=== PATIENT | male | born 1955 | race Caucasian/White ===

== ENCOUNTER 2018-08-07 00:21 | Emergency (ER) | payer BC, OTHER ==
[~2018-08-07] VITALS: Ht 175.3 cm; Wt 98.4 kg
--- OUTSIDE RECORDS SUMMARY | 2018-08-07 00:27 | XMS REPORT ---
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 Active 413268326 Problem Obstructive sleep apnea G47.33 Active 19057640 Problem Type 2 diabetes mellitus without complication, without long-term current use of insulin E11.9 Active 961375938 Problem Dyslipidemia E78.5 Active 727256416 ALLERGIES No Known Allergies ENCOUNTERS Encounter Location Date Diagnosis [facility] [id number] [place] [phone] Sep, Acute non-recurrent maxillary sinusitis J01.[address] [place] [address] [address] Aug, Dyslipidemia E78.5 and Type 2 diabetes mellitus without complication, without long-term current use of insulin E11.9 [place] [id number] [place] [phone] Aug, Type 2 diabetes mellitus without complication, without long- term current use of insulin E11.9 ; Seasonal allergic rhinitis, unspecified trigger J30.2 and Screening for prostate cancer Z12.5 IMMUNIZATIONS No Known Immunizations SOCIAL HISTORY Never Assessed REASON FOR VISIT Sinus infection -Deedee BOWDEN PLAN OF CARE Activity Details Follow Up routine appt Reason: VITAL SIGNS Height 70.2 in 2017-09-30 Weight 234.6 lbs 2017-09-30 Temperature 97.8 degrees Fahrenheit 2017-09-30 Heart Rate 76 bpm 2017-09-30 Respiratory Rate 18 2017-09-30 BMI 33.47 kg/m2 2017-09-30 Blood pressure systolic 128 mmHg 2017-09-30 Blood pressure diastolic 78 mmHg 2017-09-30 MEDICATIONS Medication Instructions Dosage Frequency Start Date End Date Duration Status SudoGest 60 mg Orally every 6 hrs 1 tablet as needed 6h Sep, 05 days Active Atorvastatin Calcium 40 mg Orally Once a day 1 tablet 24h Aug, 30 day(s) Active Allopurinol 300 MG Orally Once a day 1 tablet 24h 30 Active Augmentin 875-125 MG Orally every 12 hrs 1 tablet 12h Sep,Sep 10 day(s) Active Janumet 50-500 MG Orally Twice a day 1 tablet with meals 12h Sep, 30 day(s) Active Augmentin 875-125 MG Orally every 12 hrs 1 tablet 12h Sep,Sep Active Fluticasone Propionate 50 MCG/ACT Nasally Once a day 2spray in each nostril 24h Aug, 30 day(s) Not-Taking Farxiga 10 MG Orally Once a day 1 tablet 24h 30 Active RESULTS No Results PROCEDURES No Known procedures INSTRUCTIONS MEDICATIONS ADMINISTERED No Known Medications MEDICAL (GENERAL) HISTORY Type Description Date Medical 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
--- OUTSIDE RECORDS SUMMARY | 2018-08-07 00:27 | XMS REPORT ---
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 Active 614686763 Problem Obstructive sleep apnea G47.33 Active 77401059 Problem Type 2 diabetes mellitus without complication, without long-term current use of insulin E11.9 Active 593041685 Problem Dyslipidemia E78.5 Active [id number] ALLERGIES No Information ENCOUNTERS Encounter Location Date Diagnosis [facility] [id number] [place] [phone] Sep, Acute non-recurrent maxillary sinusitis J01.00 [facility] [id number] [place] [address] Aug, Dyslipidemia E78.5 and Type 2 diabetes mellitus without complication, without long-term current use of insulin E11.9 [place] [id number] [place] [address] Aug, Type 2 diabetes mellitus without complication, without long- term current use of insulin E11.9 ; Seasonal allergic rhinitis, unspecified trigger J30.2 and Screening for prostate cancer Z12.5 IMMUNIZATIONS No Known Immunizations SOCIAL HISTORY Never Assessed REASON FOR VISIT lab defer/med update PLAN OF CARE VITAL SIGNS MEDICATIONS Medication Instructions Dosage Frequency Start Date End Date Duration Status Janumet 50-500 MG Orally Twice a day 1 tablet with meals 12h Sep, 30 day(s) Active Atorvastatin Calcium 40 mg Orally Once a day 1 tablet 24h Aug, 30 day(s) Active RESULTS No Results PROCEDURES No Known [...]
--- OUTSIDE RECORDS SUMMARY | 2018-08-07 00:27 | XMS REPORT | Referral Summary ---
Author Organization Unknown Address Unknown Phone Unavailable Care Team Providers Care Camp Head Counselor Name Role Phone Jaun Vo PCP Encounter VC Date(s): 07/20/14 - 07/20/14 Via JUAN CARLOS Dennis, Bill, [address] [place] [address] Discharge Diagnosis: Bipolar disorder Discharge Diagnosis: Degeneration of cervical intervertebral disc Discharge Diagnosis: Kidney stone Discharge Diagnosis: Diabetes type 2, controlled Discharge Disposition: Home or Self Care Attending Physician: Jaun Vo MD Admitting Physician: Jaun Vo MD Vital Signs Most recent to 1 oldest [Reference Range]: Temperature Tympanic 35.9 degC [36.6-38.1 degC] *LOW* (07/20/14 8:27 AM) Peripheral Pulse 76 bpm Rate [60-100 bpm] (07/20/14 8:27 AM) Blood Pressure 132/82 mmHg [90-140/60-90 mmHg] (07/20/14 8:27 AM) Problem List Condition Effective Dates Status Health Status Informant Acute Active bronchitis(Confirmed ) Acute maxillary Active sinusitis(Confirmed) Bipolar disorder Active (disorder)(Confirmed ) Bladder outlet Active obstruction(Confirme d) Bronchitis, not Active specified as acute or chronic(Confirmed) Carpal tunnel Active syndrome(Confirmed) Cervical spondylosis Active without myelopathy(Confirmed ) Other chronic Active sinusitis(Confirmed) Degeneration Active cervical disc(Confirmed) Depressive disorder, Active not elsewhere classified(Confirmed ) Displacement cerv Active disc w/o myelop(Confirmed) Hearing Active loss(Confirmed) Hypertension(Confirm Active ed) Insomnia with sleep Active apnea, unspecified(Confirme d) Meningitis(Confirmed Active ) Obesity(Confirmed) Active patient Spinal stenosis in Active cervical region (disorder)(Confirmed ) Tension Active headache(Confirmed) Diabetes type 2, Active controlled(Confirmed ) Allergies, Adverse Reactions, Alerts No Known Medication Allergies Medications allopurinol 300 mg oral tablet See Instructions, TAKE ONE TABLET BY MOUTH ONCE A DAY, # 90 tabs, 1 Refill(s), eRx: [facility] #[id number], TAKE ONE TABLET BY MOUTH ONCE A DAY Special Instructions: TAKE ONE TABLET BY MOUTH ONCE A DAY Start Date: 06/21/14 Status: Ordered GlipiZIDE XL 5 mg oral tablet, extended release See Instructions, TAKE ONE TABLET BY MOUTH TWICE A DAY, # 180 unknown unit, 1 Refill(s), eRx: [facility] #[id number], TAKE ONE TABLET BY MOUTH TWICE A DAY Special Instructions: TAKE ONE TABLET BY MOUTH TWICE A DAY Start Date: 06/21/14 Status: Ordered Glucometer strips (DME) DME Item test once daily dx 250.000 contour test strips prn refills, See Instructions, # 100 Each, 0 Refill(s), Pharmacy: [facility] #[id number], test once daily dx 250.000; contour test strips; prn refills, Supply Special Instructions: test once daily dx 250.000 contour test strips prn refills Start Date: 11/17/13 Status: Ordered hydrochlorothiazide 50 mg oral tablet See Instructions, TAKE ONE TABLET BY MOUTH DAILY, # 90 tabs, 1 Refill(s), eRx: [facility] #[id number], TAKE ONE TABLET BY MOUTH DAILY Special Instructions: TAKE ONE TABLET BY MOUTH DAILY Start Date: 06/21/14 Status: Ordered Janumet 50 mg-500 mg oral tablet See Instructions, TAKE ONE TABLET BY MOUTH TWICE A DAY, # 180 tabs, 1 Refill(s) , eRx: [facility] #[id number], TAKE ONE TABLET BY MOUTH TWICE A DAY Special Instructions: TAKE ONE TABLET BY MOUTH TWICE A DAY Start Date: 06/21/14 Status: Ordered SEROquel 200 mg oral tablet 2 tabs, Oral, Daily, # 180 tabs, 0 Refill(s) Start Date: 09/13/13 Status: Ordered Wellbutrin XL 300 mg/24 hours oral tablet, extended release 1 tabs, Oral, Daily, # 90 tabs, 0 Refill(s), other reason (Rx) Start Date: 09/13/13 Status: Ordered Results No data available for this section Immunizations Vaccine Date Refusal Reason tetanus/diphth/pertuss (Tdap) adult/adol 05/18/14 influenza virus vaccine, live 02/08/13 Procedures Procedure Date Related Diagnosis Body Site Diabetic foot examination 05/18/14 Rt C4-5 /C5-6 Transforaminal 07/29/11 Colonoscopies1 10/02/09 Diabetic eye exam 09/27/08 Decompression of median nerve, Rt 06/16/08 Left Carpal tunnel release 04/15/08 Repair of hammer toe 08/21/05 Acoustic neuroma excised Rt 2004 Adenoidectomy Arthroscopy of Rt knee x2 meniscus Circumcision Lithotripsy Tonsillectomy Vasectomy 1Preoperative dx: colorectoal cancer surveilance. postoperative dx: same, normal colonoscopy - see Conversion Document Social History Social History Type Response Smoking Status Never smoker Assessment and Plan Extracted from: Title: Ambulatory Patient Education Author: Jaun Vo MD Date: Physical Medicine and Rehabilitation Diabetes and Exercise Diabetes mellitus is a common, chronic disease, in which the pancreas is unable to adequately control blood glucose (sugar ) levels. There are 2 types of diabetes. Type 1 diabetes patients are unable to produce insulin, a hormone that causes sugar in the blood to be stored in the body. People with type 1 diabetes may compensate by giving themselves injections of insulin. Type 2 diabetes involves not producing adequate amounts of insulin to control blood glucose levels. People with type 2 diabetes control their blood glucose by monitoring their food intake or by taking medicine. Exercise is an important part of diabetes treatment. During exercise, the muscles use a greater amount of glucose from the blood for energy. This lowers your blood glucose, which is the same effect you would get from taking insulin. It has been shown that endurance athletes are more sensitive to insulin than inactive people. SYMPTOMS Many people with a mild case of diabetes have no symptoms. However, if left uncontrolled, diabetes can lead to several complications that could be prevented with treatment of the disease. General symptoms of diabetes include: Frequent urination (polyuria ). Frequent thirst and drinking (polydipsia ). Increased food consumption (polyphagia ). Fatigue. Poor exercise performance. Blurred vision. Inflammation of the vagina (vaginitis ) caused by fungal infections. Skin infections (uncommon). Numbness in the feet,caused by nerve injury. Kidney disease. CAUSES The cause of most cases of diabetes is unknown. In children, diabetes is often due to an autoimmune response to the cells in the pancreas that make insulin. It is also linked with other diseases, such as cystic fibrosis. Diabetes may have a genetic link. PREVENTION Athletes should strive to begin exercise with blood glucose in a well- controlled state. Feet should always be kept clean and dry. Activities in which low blood sugar levels cannot be treated easily (scuba diving, rock climbing, swimming) should be avoided. Anticipate alterations in diet or training to avoid low blood sugar ( hypoglycemia ) and high blood sugar (hyperglycemia ). Athletes should try to increase sugar consumption after strenuous exercise to avoid hypoglycemia. Short-acting insulin should not be injected into an actively exercising muscle. The athlete should rest the injection site for about 1 hour after exercise. Patients with diabetes should get routine checkups of the feet to prevent complications. PROGNOSIS Exercise provides many benefits to the person with diabetes: Reduced body fat. Lower blood pressure. Often, reduced need for medicines. Improved exercise tolerance. Lower insulin levels. Weight loss. Improved lipid profile (decreased cholesterol and low-density lipoproteins ) . RELATED COMPLICATIONS If performed incorrectly, exercise can result in complications of diabetes: Poor control of blood sugar, when exercise is performed at the wrong time. Increase in renal disease, from loss of body fluids (dehydration ). Increased risk of nerve injury (neuropathy ) when performing exercises that increase foot injury. Increased risk of eye problems when performingactivities that involve breath holding or lowering or jarring the head. Increased risk of sudden from exercise in patients with heart disease. Worsening of hypertension with heavy lifting (more than 10 lb/4.5 kg). Altered blood glucose and insulin dose as a result of mild illness that produces loss of appetite. Altered uptake of insulin after injection when insulin injection site is changed. NOTE: Exercise can lower blood glucose effectively, but the effects are short- lasting (no more than a couple of days). Exercise has been shown to improve your sensitivity to insulin. This may alter how your body responds to a given dose of injected insulin. It is important for every patient with diabetes to know how his or her body may react to exercise, and to adjust insulin dosages accordingly. TREATMENT Eat about 1 to 3 hours before exercise. Check blood glucose immediately before and after exercise. Stop exercise if blood glucose is more than 250 mg/dL. Stop exercise if blood glucose is less than 100 mg/dL. Do not exercise within 1 hour of an insulin injection. Be prepared to treat low blood glucose while exercising. Keep some sugar product with you, such as a candy bar. For prolonged exercise, use a sports drink to maintain your glucose level. Replace used up glucose in the body after exercise. Consume fluids during and after exercise to avoid dehydration. SEEK MEDICAL CARE IF: You have vision changes after a run. You notice a loss of sensation in your feet after exercise. You have increased numbness, tingling, or pins and needles sensations after exercise. You have chest pain during or after exercise. You have a fast, irregular heartbeat (palpitations ) during or after exercise. Your exercise tolerance gets worse. You have fainting or dizzy spells for brief periods during or after exercise. Document Released: 03/10/2006 Document Revised: 06/01/2012 Document Reviewed: [employer] Patient Information 2014 [employer]. No follow up information was provided. Extracted from: Title: Office Visit Note Author: Jaun Vo MD Date: 07/20/14 Assessment/Plan Bipolar disorder Overall stable no change in current treatment. Ordered: Office Visit Level 4 Est 62772 Degeneration of cervical intervertebral disc His pain has been well controlled no change in current treatment. Ordered: Office Visit Level 4 Est 97860 Diabetes type 2, controlled I gave him some information on the savings plan with Januvia area he'll look into that and if that works for his will continue if not we'll discontinue the Januvia and see how he does just on metformin and glipizide together. He'll keep me posted on brace at with that. Ordered: Office Visit Level 4 Est 26193 Kidney stone We'll decrease his dose of hydrochlorothiazide 25 mg a day and see how he does. Probably that'll help with the side effects of dry mouth but still give him some protection from his stones. Ordered: Office Visit Level 4 Est 39490
--- OUTSIDE RECORDS SUMMARY | 2018-08-07 00:28 | XMS REPORT | Clinical Summary ---
Author Author Admin, IGNACIO Organization [facility] Address Unknown Phone Unavailable Allergies, Adverse Reactions, Alerts Allergy Name Reaction Description Start Date Severity Status Provider Allergies Unknown Conditions or Problems Problem Name Problem Code Onset Date Status Entry Date Provider Comment Standard Description Annotate Kidney stone 592.0 Active Whit Trivedi MD Calculus of kidney Flank Pain Active Whit Trivedi MD Abdominal pain, unspecified site Renal calculus, right 592.0 Active Whit Trivedi MD Calculus of kidney Medication List Medication Instructions Start Date Stop Date Generic Name ND Status Provider Patient Instruction PIROXICAM 20 MG ORAL CAPS Take one by mouth daily PIROXICAM 94012193937 Active Whit Trivedi MD Active ACTOS 45 MG ORAL TABS Take one by mouth daily PIOGLITAZONE HCL 99341616811 Active Whit Trivedi MD Active HYDROCODONE-ACETAMINOPHEN 10-325 MG ORAL TABS 1 tabe every 4 hours as needed HYDROCODONE-ACETAMINOPHEN 00690365172 Active Whit Trivedi MD Active QUETIAPINE FUMARATE 200 MG ORAL TABS 2 tabs by mouth daily QUETIAPINE FUMARATE 03173029712 Active Whit Trivedi MD Active ALBUTEROL SULFATE 4 MG ORAL TABS Take one by mouth daily ALBUTEROL SULFATE 17180502730 Active Whit Trivedi MD Active BENZTROPINE MESYLATE 2 MG ORAL TABS 1 tab every 4 hours for cough as needed BENZTROPINE MESYLATE 98492407124 Active Whit Trivedi MD Active FUROSEMIDE 20 MG ORAL TABS Take one by mouth daily as needed for ankle swelling FUROSEMIDE 67481316078 Active Whit Trivedi MD Active BELBUCA 150 MCG BUC FILM 1 application under the lip daily BUPRENORPHINE HCL 29592107379 Active Whit Trivedi MD Active BUPROPION HCL 100 MG ORAL TABS take3 tabs by mouth daily BUPROPION HCL 53909116003 Active Whit Trivedi MD Active JARDIANCE 25 MG ORAL TABS Take one by mouth daily EMPAGLIFLOZIN 21915333471 Active Whit Trivedi MD Active JANUMET XR 50-1000 MG ORAL [id number] by mouth twice a day SITAGLIPTIN- METFORMIN HCL 43693375290 Active Whit Trivedi MD Active GLIPIZIDE 5 MG ORAL TABS by mouth twice a day GLIPIZIDE 96762131666 Active Whit Trivedi MD Active ALLOPURINOL 300 MG TAB Take one by mouth daily ALLOPURINOL 75604953786 Active Whit Trivedi MD Active Encounters Code Encounter Date Provider Facility CPT-44189 Level 4 New Patient 13:23:20 CDT Whit Trivedi MD [facility] Procedures Code Procedure Name Date Entry Date Standard Description CPT-98422 Sono retroperitoneal complete kidneys and bladder - XRAY USE ONLY 11:20:49 CDT CPT-44643 Abd single AP View - XRAY USE ONLY 08:58:02 CDT
--- OUTSIDE RECORDS SUMMARY | 2018-08-07 00:28 | XMS REPORT | Clinical Summary ---
Author Author Admin, IGNACIO Organization [facility] Address Unknown Phone Unavailable Allergies, Adverse Reactions, Alerts Allergy Name Reaction Description Start Date Severity Status Provider No Known Allergies Deann Elder Conditions or Problems Problem Name Problem Code Onset Date Status Entry Date Provider Comment Standard Description Annotate Kidney stone 592.0 Active Whit Trivedi MD Calculus of kidney Flank Pain Active Whit Trivedi MD Abdominal pain, unspecified site Renal calculus, right 592.0 Active Whit Trivedi MD Calculus of kidney Medication List Medication Instructions Start Date Stop Date Generic Name NDC Status Provider Patient Instruction PIROXICAM 20 MG ORAL CAPS Take one by mouth daily PIROXICAM 48322205150 Active Whit Trivedi MD Active ACTOS 45 MG ORAL TABS Take one by mouth daily PIOGLITAZONE HCL 20700675679 Active Whit Trivedi MD Active HYDROCODONE-ACETAMINOPHEN 10-325 MG ORAL TABS 1 tabe every 4 hours as needed HYDROCODONE-ACETAMINOPHEN 55743047328 Active Whit Trivedi MD Active QUETIAPINE FUMARATE 200 MG ORAL TABS 2 tabs by mouth daily QUETIAPINE FUMARATE 01144323307 Active Whit Trivedi MD Active ALBUTEROL SULFATE 4 MG ORAL TABS Take one by mouth daily ALBUTEROL SULFATE 26707558226 Active Whit Trivedi MD Active BENZTROPINE MESYLATE 2 MG ORAL TABS 1 tab every 4 hours for cough as needed BENZTROPINE MESYLATE 83343887123 Active Whit Trivedi MD Active FUROSEMIDE 20 MG ORAL TABS Take one by mouth daily as needed for ankle swelling FUROSEMIDE 57115232250 Active Whit Trivedi MD Active BELBUCA 150 MCG BUC FILM 1 application under the lip daily BUPRENORPHINE HCL 88146155488 Active Whit Trivedi MD Active BUPROPION HCL 100 MG ORAL TABS take3 tabs by mouth daily BUPROPION HCL 15230565516 Active Whit Trivedi MD Active JARDIANCE 25 MG ORAL TABS Take one by mouth daily EMPAGLIFLOZIN 60649402828 Active Whit Trivedi MD Active JANUMET XR 50-1000 MG ORAL [id number] by mouth twice a day SITAGLIPTIN- METFORMIN HCL 79172466587 Active Whit Trivedi MD Active GLIPIZIDE 5 MG ORAL TABS by mouth twice a day GLIPIZIDE 37926958055 Active Whit Trivedi MD Active ALLOPURINOL 300 MG TAB Take one by mouth daily ALLOPURINOL 06993880616 Active Whit Trivedi MD Active Vital Signs Date Name Value Unit Range Description blood pressure, diastolic 82 mm[Hg] BP lópez blood pressure, systolic 130 mm[Hg] BP sys height E&M 69 [in_us] Bdy height pulse rate E&M 90 /min Heart rate temperature E&M 98.1 [degF] Body temperature weight E&M 235 [lb_av] Weight Measured Diagnostic Results Date Name Value Unit Range Description Office Visit: Consult for Right Flank Pain - Chemistry RBC, urine, dipstick negative protein, total urine random negative mg/dL Office Visit: Consult for Right Flank Pain - Urinalysis pH, urine, semiquantitative 5 specific gravity, urine 1.010 urinalysis, routine Clean Catch culture status No ketones, urine, by test strip negative bilirubin, urine negative glucose, urine, semiquantitative negative urine color yellow appearance, urine clear leukocyte esterase, urine, by dipstick negative nitrite, urine, semiquantitative negative urobilinogen, urine, semiquantitative (dipstick) negative protein, urine, semiquantitative (dipstick) negative Encounters Code Encounter Date Provider Facility CPT-53978 Level 4 New Patient 13:23:20 CDT Whit Trivedi MD [facility] Procedures Code Procedure Name Date Entry Date Standard Description CPT-09452 Sono retroperitoneal complete kidneys and bladder - XRAY USE ONLY 11:20:49 CDT CPT-29543 Abd single AP View - XRAY USE ONLY 08:58:02 CDT
--- OUTSIDE RECORDS SUMMARY | 2018-08-07 00:28 | XMS REPORT | Clinical Summary ---
[...] CAPS Take one by mouth daily PIROXICAM 75224710236 Active Whit Trivedi MD Active ACTOS 45 MG ORAL TABS Take one by mouth daily PIOGLITAZONE HCL 24808802647 Active Whit Trivedi MD Active HYDROCODONE-ACETAMINOPHEN 10-325 MG ORAL TABS 1 tabe every 4 hours as needed HYDROCODONE-ACETAMINOPHEN 72194915111 Active Whit Trivdei MD Active QUETIAPINE FUMARATE 200 MG ORAL TABS 2 tabs by mouth daily QUETIAPINE FUMARATE 51403256498 Active Whit Trivedi MD Active ALBUTEROL SULFATE 4 MG ORAL TABS Take one by mouth daily ALBUTEROL SULFATE 86689686758 Active Whit Trivedi MD Active BENZTROPINE MESYLATE 2 MG ORAL TABS 1 tab every 4 hours for cough as needed BENZTROPINE MESYLATE 75940387019 Active Whit Trivedi MD Active FUROSEMIDE 20 MG ORAL TABS Take one by mouth daily as needed for ankle swelling FUROSEMIDE 05450320452 Active Whit Trivedi MD Active BELBUCA 150 MCG BUC FILM 1 application under the lip daily BUPRENORPHINE HCL 08993386290 Active Whit Trivedi MD Active BUPROPION HCL 100 MG ORAL TABS take3 tabs by mouth daily BUPROPION HCL 99687622102 Active Whit Trivedi MD Active JARDIANCE 25 MG ORAL TABS Take one by mouth daily EMPAGLIFLOZIN 42470559510 Active Whit Trivedi MD Active JANUMET XR 50-1000 MG ORAL [id number] by mouth twice a day SITAGLIPTIN- METFORMIN HCL 29786031990 Active Whit Trivedi MD Active GLIPIZIDE 5 MG ORAL TABS by mouth twice a day GLIPIZIDE 02920917254 Active Whit Trivedi MD Active ALLOPURINOL 300 MG TAB Take one by mouth daily ALLOPURINOL 41343961525 Active Whit Trivedi MD Active Encounters Code Encounter Date Provider Facility CPT-39629 Level 4 New Patient 13:23:20 CDT Whit Trivedi MD [facility] Procedures Code Procedure Name Date Entry Date Standard Description CPT-19262 Sono retroperitoneal complete kidneys and bladder - XRAY USE ONLY 11:20:49 CDT CPT-41564 Abd single AP View - XRAY USE ONLY 08:58:02 CDT
--- OUTSIDE RECORDS SUMMARY | 2018-08-07 00:28 | XMS REPORT | Clinical Summary ---
Author Author Admin, IGNACIO Organization [facility] Address Unknown Phone Unavailable Allergies, Adverse [...] CAPS Take one by mouth daily PIROXICAM 75509968907 Active Whit Trivedi MD Active ACTOS 45 MG ORAL TABS Take one by mouth daily PIOGLITAZONE HCL 78910572540 Active Whit Trivedi MD Active HYDROCODONE-ACETAMINOPHEN 10-325 MG ORAL TABS 1 tabe every 4 hours as needed HYDROCODONE-ACETAMINOPHEN 90280216100 Active Whit Trivedi MD Active QUETIAPINE FUMARATE 200 MG ORAL TABS 2 tabs by mouth daily QUETIAPINE FUMARATE 22787525619 Active Whit Trivedi MD Active ALBUTEROL SULFATE 4 MG ORAL TABS Take one by mouth daily ALBUTEROL SULFATE 62939063252 Active Whit Trivedi MD Active BENZTROPINE MESYLATE 2 MG ORAL TABS 1 tab every 4 hours for cough as needed BENZTROPINE MESYLATE 82308601708 Active Whit Trivedi MD Active FUROSEMIDE 20 MG ORAL TABS Take one by mouth daily as needed for ankle swelling FUROSEMIDE 50281203037 Active Whit Trivedi MD Active BELBUCA 150 MCG BUC FILM 1 application under the lip daily BUPRENORPHINE HCL 18409459289 Active Whit Trivedi MD Active BUPROPION HCL 100 MG ORAL TABS take3 tabs by mouth daily BUPROPION HCL 22450720616 Active Whit Trivedi MD Active JARDIANCE 25 MG ORAL TABS Take one by mouth daily EMPAGLIFLOZIN 62470130162 Active Whit Trivedi MD Active JANUMET XR 50-1000 MG ORAL [id number] by mouth twice a day SITAGLIPTIN- METFORMIN HCL 75283576674 Active Whit Trivedi MD Active GLIPIZIDE 5 MG ORAL TABS by mouth twice a day GLIPIZIDE 11859906771 Active Whit Trivedi MD Active ALLOPURINOL 300 MG TAB Take one by mouth daily ALLOPURINOL 97206093772 Active Whit Trivedi MD Active Encounters Code Encounter Date Provider Facility CPT-74885 Level 4 New Patient 13:23:20 CDT Whit Trivedi MD [facility] Procedures Code Procedure Name Date Entry Date Standard Description CPT-19973 Sono retroperitoneal complete kidneys and bladder - XRAY USE ONLY 11:20:49 CDT CPT-64804 Abd single AP View - XRAY USE ONLY 08:58:02 CDT
--- OUTSIDE RECORDS SUMMARY | 2018-08-07 00:28 | XMS REPORT | Clinical Summary ---
Author Author Admin, IGNACIO Organization [facility] Address Unknown Phone Unavailable Allergies, Adverse [...] CAPS Take one by mouth daily PIROXICAM 01923289905 Active Whit Trivedi MD Active ACTOS 45 MG ORAL TABS Take one by mouth daily PIOGLITAZONE HCL 12708969997 Active Whit Trivedi MD Active HYDROCODONE-ACETAMINOPHEN 10-325 MG ORAL TABS 1 tabe every 4 hours as needed HYDROCODONE-ACETAMINOPHEN 07877835119 Active Whit Trivedi MD Active QUETIAPINE FUMARATE 200 MG ORAL TABS 2 tabs by mouth daily QUETIAPINE FUMARATE 51585923922 Active Whit Trivedi MD Active ALBUTEROL SULFATE 4 MG ORAL TABS Take one by mouth daily ALBUTEROL SULFATE 90522232979 Active Whit Trivedi MD Active BENZTROPINE MESYLATE 2 MG ORAL TABS 1 tab every 4 hours for cough as needed BENZTROPINE MESYLATE 97274150255 Active Whit Trivedi MD Active FUROSEMIDE 20 MG ORAL TABS Take one by mouth daily as needed for ankle swelling FUROSEMIDE 49280384726 Active Whit Trivedi MD Active BELBUCA 150 MCG BUC FILM 1 application under the lip daily BUPRENORPHINE HCL 07740231164 Active Whit Trivedi MD Active BUPROPION HCL 100 MG ORAL TABS take3 tabs by mouth daily BUPROPION HCL 81839903252 Active Whit Trivedi MD Active JARDIANCE 25 MG ORAL TABS Take one by mouth daily EMPAGLIFLOZIN 94310460654 Active Whit Trivedi MD Active JANUMET XR 50-1000 MG ORAL [id number] by mouth twice a day SITAGLIPTIN- METFORMIN HCL 50445796936 Active Whit Trivedi MD Active GLIPIZIDE 5 MG ORAL TABS by mouth twice a day GLIPIZIDE 14465381629 Active Whit Trivedi MD Active ALLOPURINOL 300 MG TAB Take one by mouth daily ALLOPURINOL 75201698301 Active Whit Trivedi MD Active Vital Signs [...] negative Encounters Code Encounter Date Provider Facility CPT-38287 Level 4 New Patient 13:23:20 CDT Whit Trivedi MD [facility] Procedures Code Procedure Name Date Entry Date Standard Description CPT-51590 Sono retroperitoneal complete kidneys and bladder - XRAY USE ONLY 11:20:49 CDT CPT-89014 Abd single AP View - XRAY USE ONLY 08:58:02 CDT
--- OUTSIDE RECORDS SUMMARY | 2018-08-07 00:28 | XMS REPORT | Clinical Summary ---
Author Author Admin, IGNACIO Organization [facility] Address Unknown Phone Unavailable Allergies, Adverse Reactions, [...] CAPS Take one by mouth daily PIROXICAM 47010910193 Active Whit Trivedi MD Active ACTOS 45 MG ORAL TABS Take one by mouth daily PIOGLITAZONE HCL 87655630423 Active Whit Trivedi MD Active HYDROCODONE-ACETAMINOPHEN 10-325 MG ORAL TABS 1 tabe every 4 hours as needed HYDROCODONE-ACETAMINOPHEN 58957908941 Active Whit Trivedi MD Active QUETIAPINE FUMARATE 200 MG ORAL TABS 2 tabs by mouth daily QUETIAPINE FUMARATE 52062728546 Active Whit Trivedi MD Active ALBUTEROL SULFATE 4 MG ORAL TABS Take one by mouth daily ALBUTEROL SULFATE 22729336441 Active Whit Trivedi MD Active BENZTROPINE MESYLATE 2 MG ORAL TABS 1 tab every 4 hours for cough as needed BENZTROPINE MESYLATE 34947791549 Active Whit Trivedi MD Active FUROSEMIDE 20 MG ORAL TABS Take one by mouth daily as needed for ankle swelling FUROSEMIDE 71646176402 Active Whit Trivedi MD Active BELBUCA 150 MCG BUC FILM 1 application under the lip daily BUPRENORPHINE HCL 58682139022 Active Whit Trivedi MD Active BUPROPION HCL 100 MG ORAL TABS take3 tabs by mouth daily BUPROPION HCL 57669794180 Active Whit Trivedi MD Active JARDIANCE 25 MG ORAL TABS Take one by mouth daily EMPAGLIFLOZIN 13113629567 Active Whit Trivedi MD Active JANUMET XR 50-1000 MG ORAL [id number] by mouth twice a day SITAGLIPTIN- METFORMIN HCL 13133168858 Active Whit Trivedi MD Active GLIPIZIDE 5 MG ORAL TABS by mouth twice a day GLIPIZIDE 73232963749 Active Whit Trivedi MD Active ALLOPURINOL 300 MG TAB Take one by mouth daily ALLOPURINOL 06012795734 Active Whit Trivedi MD Active Encounters Code Encounter Date Provider Facility CPT-52504 Level 4 New Patient 13:23:20 CDT Whit Trivedi MD [facility] Procedures Code Procedure Name Date Entry Date Standard Description CPT-96414 Sono retroperitoneal complete kidneys and bladder - XRAY USE ONLY 11:20:49 CDT CPT-67637 Abd single AP View - XRAY USE ONLY 08:58:02 CDT
--- OUTSIDE RECORDS SUMMARY | 2018-08-07 00:28 | XMS REPORT ---
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 819681308 Problem Obstructive sleep apnea G47.33 Active 24411959 Problem Type 2 diabetes mellitus without complication, without long-term current use of insulin E11.9 Active 896448391 Problem Dyslipidemia E78.5 Active 076117107 ALLERGIES No Known Allergies ENCOUNTERS Encounter Location Date Diagnosis [facility] [place] [id number] [place] [phone] Sep, Acute non-recurrent maxillary sinusitis J01.00 [facility] [place] [id number] [place] [phone] Aug, Dyslipidemia E78.5 and Type 2 diabetes mellitus without complication, without long-term current use of insulin E11.9 [place] [address] [phone] Aug, Type 2 diabetes mellitus without complication, without long- term current use of insulin E11.9 ; Seasonal allergic rhinitis, unspecified trigger J30.2 and Screening for prostate cancer Z12.5 IMMUNIZATIONS No Known Immunizations SOCIAL HISTORY Never Assessed REASON FOR VISIT Sinus c/o-KAL Jean Baptiste, wants to talk to you about medication PLAN OF CARE Activity Details Follow Up 3 Months Reason:DM VITAL SIGNS Height 70.2 in 2017-09-12 Weight 231.4 lbs 2017-09-12 Temperature 97.7 degrees Fahrenheit 2017-09-12 Heart Rate 64 bpm 2017-09-12 Respiratory Rate 18 2017-09-12 BMI 33.01 kg/m2 2017-09-12 Blood pressure systolic 134 mmHg 2017-09-12 Blood pressure diastolic 68 mmHg 2017-09-12 MEDICATIONS Medication Instructions Dosage Frequency Start Date End Date Duration Status Fluticasone Propionate 50 MCG/ACT Nasally Once a day 2spray in each nostril 24h Aug, 30 day(s) Active Farxiga 10 MG Orally Once a day 1 tablet 24h 30 Active Janumet XR 50-1000 MG Orally twice a day 1 tablets 12h Aug, 30 day(s) Active Allopurinol 300 MG Orally Once a day 1 tablet 24h 30 Active RESULTS No Results PROCEDURES Procedure Date Ordered Result Body Site GLYCATED HEMOGLOBIN TEST September 12, 2017 LAB NOT BILLED BY [facility] September 12, 2017 INSTRUCTIONS MEDICATIONS ADMINISTERED No Known Medications MEDICAL [...]
--- OUTSIDE RECORDS SUMMARY | 2018-08-07 00:29 | XMS REPORT | Summary of Care ---
Author Author Liliana Watts APRN Organization Unknown Address [address] [place], [place] [id number] Phone Unavailable Care Team Providers Care Skip Tender Name Role Phone Liliana Watts APRN Unavailable Unavailable Estrella Hunter, Alexx Unavailable Unavailable Jaun Vo PP Unavailable Unavailable Unavailable Functional Status Functional Status Health Issues* Name Dates Details Functional status health issues are not documented Status: Cognitive Status Health Issues* Name Dates Details Cognitive status health issues are not documented Status: Problems Name Dates Details Type 2 diabetes mellitus (250.00, E11.9) Status: Active Nephrolithiasis (592.0, N20.0) Status: Active Kidney stones (592.0, N20.0) Status: Active Infective otitis externa (380.10, H60.399) Status: Active Sore throat (462, J02.9) Status: Active Acute pharyngitis (462, J02.9) Status: Active Medications Name Dates Details Wellbutrin TABS ActiveSEROquel TABS * Refills: 0 ActiveMetFORMIN HCl - 1000 MG Oral Tablet TAKE 1 TABLET TWICE DAILY. * Refills: 0 Liliana Watts APRN* Started ActiveGlipiZIDE 5 MG Oral Tablet TAKE 1 TABLET TWICE DAILY. * Quantity: 60 Refills: 0 Alexx De La Rosa M.D.* Started ActiveHydrochlorothiazide 25 MG Oral Tablet TAKE 1 TABLET DAILY. * Quantity: 30 Refills: 0 Alexx De La Rosa M.D.* Started ActiveAllopurinol 100 MG Oral Tablet TAKE 1 TABLET DAILY DIRECTED. * Refills: 0 Alexx De La Rosa M.D.* Started ActiveBuPROPion HCl ER (SR) 150 MG Oral Tablet Extended Release 12 Hour 2 tabs BID * Refills: 0 Alexx De La Rosa M.D.* Started ActiveAcetaminophen-Codeine 300-30 MG Oral Tablet Take 1 tablet every 4-6 hours as needed for pain * Quantity: 10 Refills: 0 Liliana Watts APRN* Started ActiveClindamycin HCl - 300 MG Oral Capsule Take two capsules three times daily for 7 days * Quantity: 42 Refills: 0 Liliana Watts APRN* Started ActivePredniSONE 20 MG Oral Tablet Take 2 tablets daily for 3 days, 1 tablet daily for 3 days, 1/2 tablet daily for 3 days then stop * Quantity: 12 Refills: 0 Liliana Watts APRN* Started ActiveLidocaine Viscous 2 % Mouth/Throat Solution Swish and spit two teaspoonfuls prior to each meal * Quantity: 1 Refills: 1 Liliana Watts APRN* Started [id number] ML Bottle Allergies and Adverse Reactions Name Dates Details No Known Allergies Status: Active Procedures Procedure Dates Details History of Lithotripsy - Whole Body (Extracorporeal Shock Wave) History of Cystoscopy With Ureteroscopy With Removal Of Calculus History of Cystoscopy With Insertion Of Ureteral Stent Left Completed: History of Cystourethroscopy W/ Ureteroscopy W/ Tx Of Ureteral Strict Completed:28-Apr-2009 Procedures not documented Immunization Name Dates Details Diphtheria-Tetanus Toxoids 6.7-5 LFU/0.5ML Intramuscular Injectable Administered on:Oct-2013 Family History Unknown Family Member* Name Dates Details Family history of Nephrolithiasis Comments: Family History Status: Active Social History Name Dates Details Smoking Status* Never smoker Vital Signs Date Test Result Details 13:03 BP Systolic 130 mm[Hg] Status: BP Diastolic 80 mm[Hg] Status: Temperature 98.4 f Status: Heart Rate 84 /min Status: Weight 253.125 lb Status: O2 SAT 97 % Status: Results Date Description Value Details 13:35 STREPTOCOCCUS SCREEN WITH CULTURE 5040 Comments: * Culture in progress*Testing performed by [facility], [address] [place] [address] *STREPTOCOCCUS SCREEN NEGATIVE for Streptococcus pyogenes (Better) Range : NEGATIVE for Streptococcus pyogenes 10:21 MONONUCLEOSIS ANTIBODY 2009 Comments: Testing performed by [facility], [address] [place] [address] MONONUCLEOSIS ANTIBODY Negative (Better) Range: Negative 13:38 THROAT CULTURE [id number] Comments: [facility] performed at: [facility], [address] [place], [address], Acid Tester: Ever Almanza D.O., MPHQuest Collection Date/Time: [id number] Results Received Date/Time: [id number] Reported Date/Time: [id number] performed at: [facility], [address] [place], [address], Acid Tester: Ever Almanza D.O., MPHQuest Collection Date/Time: [id number] Results Received Date/Time: [id number] Reported Date/Time: [id number] CULTURE, THROAT SEE NOTE (Better) Comments: CULTURE, THROAT MICRO NUMBER: [id number] TEST STATUS: FINAL SPECIMEN SOURCE: THROAT SPECIMEN QUALITY: ADEQUATE RESULT: No oropharyngeal pathogens recovered.[KS]----- Plan of Care Planned Observations* Name Dates Details Planned Goals not documented Goal Planned Encounters* Appointment; Provider: Bryce Recinos On 28-Apr-2009 13:30 Instructions * Instructions not documented Encounters Appointment; Liliana Watts Encounter Diagnosis: Problem not documented On 09:55 Appointment; Liliana Watts Encounter Diagnosis: Problem not documented On 13:00 Appointment; Alexx De La Rosa Encounter Diagnosis: Problem not documented On 13:20
--- OUTSIDE RECORDS SUMMARY | 2018-08-07 00:29 | XMS REPORT | Clinical Summary ---
Author Author Admin, IGNACIO Organization [facility] Address Unknown Phone Unavailable Allergies, Adverse [...] CAPS Take one by mouth daily PIROXICAM 54345668974 Active Whit Trivedi MD Active ACTOS 45 MG ORAL TABS Take one by mouth daily PIOGLITAZONE HCL 72481770604 Active Whit Trivedi MD Active HYDROCODONE-ACETAMINOPHEN 10-325 MG ORAL TABS 1 tabe every 4 hours as needed HYDROCODONE-ACETAMINOPHEN 96943659368 Active Whit Trivedi MD Active QUETIAPINE FUMARATE 200 MG ORAL TABS 2 tabs by mouth daily QUETIAPINE FUMARATE 46852377369 Active Whit Trivedi MD Active ALBUTEROL SULFATE 4 MG ORAL TABS Take one by mouth daily ALBUTEROL SULFATE 91060526966 Active Whit Trivedi MD Active BENZTROPINE MESYLATE 2 MG ORAL TABS 1 tab every 4 hours for cough as needed BENZTROPINE MESYLATE 68688973014 Active Whit Trivedi MD Active FUROSEMIDE 20 MG ORAL TABS Take one by mouth daily as needed for ankle swelling FUROSEMIDE 23547051632 Active Whit Trivedi MD Active BELBUCA 150 MCG BUC FILM 1 application under the lip daily BUPRENORPHINE HCL 68630255420 Active Whit Trivedi MD Active BUPROPION HCL 100 MG ORAL TABS take3 tabs by mouth daily BUPROPION HCL 15747005638 Active Whit Trivedi MD Active JARDIANCE 25 MG ORAL TABS Take one by mouth daily EMPAGLIFLOZIN 81919874701 Active Whit Trivedi MD Active JANUMET XR 50-1000 MG ORAL [id number] by mouth twice a day SITAGLIPTIN- METFORMIN HCL 54928541336 Active Whit Trivedi MD Active GLIPIZIDE 5 MG ORAL TABS by mouth twice a day GLIPIZIDE 41520313687 Active Whit Trivedi MD Active ALLOPURINOL 300 MG TAB Take one by mouth daily ALLOPURINOL 40375382021 Active Whit Trivedi MD Active Encounters Code Encounter Date Provider Facility CPT-64592 Level 4 New Patient 13:23:20 CDT Whit Trivedi MD [facility] Procedures Code Procedure Name Date Entry Date Standard Description CPT-34530 Sono retroperitoneal complete kidneys and bladder - XRAY USE ONLY 11:20:49 CDT CPT-08856 Abd single AP View - XRAY USE ONLY 08:58:02 CDT
--- OUTSIDE RECORDS SUMMARY | 2018-08-07 00:29 | XMS REPORT | Summary of Care ---
Author Author Alexx De La Rosa M.D. Organization Unknown Address [address] [place] [address], [place] [address] Phone Unavailable Care Team Providers Care Hop Grower Name Role Phone Liliana Watts APRN Unavailable Unavailable Alexx De La Rosa M.D. Unavailable Unavailable Outside, Physician PP Unavailable Unavailable Unavailable Functional Status Functional [...] Infective otitis externa (380.10, H60.399) Status: Active Medications Name Dates Details Wellbutrin [...] 0 Alexx De La Rosa M.D.* Started ActiveOfloxacin 0.3 % Otic Solution 3 drops twice a day for 5 days * Quantity: 1 Refills: 0 Alexx De La Rosa M.D.* Started Active Allergies and Adverse Reactions Name Dates Details [...] smoker Vital Signs Date Test Result Details 13:21 BP Systolic 138 mm[Hg] Status: BP Diastolic 76 mm[Hg] Status: Heart Rate 76 /min Status: Respiration Rate 16 /min Status: Temperature 97.9 f Status: Weight 254 lb Status: O2 SAT 98 % Status: Results Date Description Value Details 03-Aug-2014 00:00 Diabetic Eye Exam No diabetic retinopathy (Better) Plan of Care Planned Observations* Name Dates Details Planned Goals not documented Goal Planned Encounters* Appointment; Provider: Bryce Recinos On 28-Apr-2009 13:30 Instructions * Instructions not documented Encounters Appointment; Alexx De La Rosa Encounter Diagnosis: Problem not documented On 13:20
--- OUTSIDE RECORDS SUMMARY | 2018-08-07 00:29 | XMS REPORT | Summary of Care ---
Author Author Liliana Watts APRN Organization Unknown Address [address], [place] [id number] Phone Unavailable Care Team Providers Care Specialty Molder Name Role Phone Liliana Watts APRN Unavailable [...] Infective otitis externa (380.10, H60.399) Status: Active Acute pharyngitis (462, J02.9) Status: Active Sore throat (462, J02.9) Status: Active Medications Name Dates [...] 1 Refills: 1 Liliana Watts APRN* Started [id number] ML Bottle Allergies and Adverse Reactions Name [...] smoker Vital Signs Date Test Result Details No Known Vitals to report Results Date Description Value Details 13:38 THROAT CULTURE [id number] Comments: [facility] performed at: [facility], [address] [place], [address], Typing Office Worker: Ever Almanza D.O., MPHQuest Collection Date/Time: [id number] Results Received Date/Time: [id number] Reported Date/Time: [id number] performed at: [facility], [address] [place], [address], Typing Office Worker: Ever Almanza D.O., MPHQuest Collection Date/Time: [id number] Results Received Date/Time: [id number] Reported Date/Time: [id number] CULTURE, THROAT SEE NOTE (Better) Comments: CULTURE, THROAT MICRO NUMBER: [id number] TEST STATUS: FINAL SPECIMEN SOURCE: THROAT SPECIMEN [...]
--- OUTSIDE RECORDS SUMMARY | 2018-08-07 00:29 | XMS REPORT | Clinical Summary ---
Author Author Admin, IGNACIO Organization [facility] Address Unknown Phone Unavailable Allergies, Adverse Reactions, [...] CAPS Take one by mouth daily PIROXICAM 27627158212 Active Whit Trivedi MD Active ACTOS 45 MG ORAL TABS Take one by mouth daily PIOGLITAZONE HCL 46676031280 Active Whit Trivedi MD Active HYDROCODONE-ACETAMINOPHEN 10-325 MG ORAL TABS 1 tabe every 4 hours as needed HYDROCODONE-ACETAMINOPHEN 70807528381 Active Whit Trivedi MD Active QUETIAPINE FUMARATE 200 MG ORAL TABS 2 tabs by mouth daily QUETIAPINE FUMARATE 86178823942 Active Whit Trivedi MD Active ALBUTEROL SULFATE 4 MG ORAL TABS Take one by mouth daily ALBUTEROL SULFATE 47369724602 Active Whit Trivedi MD Active BENZTROPINE MESYLATE 2 MG ORAL TABS 1 tab every 4 hours for cough as needed BENZTROPINE MESYLATE 52337473314 Active Whit Trivedi MD Active FUROSEMIDE 20 MG ORAL TABS Take one by mouth daily as needed for ankle swelling FUROSEMIDE 66733195393 Active Whit Trivedi MD Active BELBUCA 150 MCG BUC FILM 1 application under the lip daily BUPRENORPHINE HCL 18045608611 Active Whit Trivedi MD Active BUPROPION HCL 100 MG ORAL TABS take3 tabs by mouth daily BUPROPION HCL 29440900912 Active Whit Trivedi MD Active JARDIANCE 25 MG ORAL TABS Take one by mouth daily EMPAGLIFLOZIN 28093498972 Active Whit Trivedi MD Active JANUMET XR 50-1000 MG ORAL [id number] by mouth twice a day SITAGLIPTIN- METFORMIN HCL 52648481462 Active Whit Trivedi MD Active GLIPIZIDE 5 MG ORAL TABS by mouth twice a day GLIPIZIDE 94506179237 Active Whit Trivedi MD Active ALLOPURINOL 300 MG TAB Take one by mouth daily ALLOPURINOL 97984100120 Active Whit Trivedi MD Active Vital Signs Date Name Value Unit Range Description blood pressure, diastolic - 8462-4 82 mm[Hg] BP lópez blood pressure, systolic - 8480-6 130 mm[Hg] BP sys height E&M - 8302-2 69 [in_us] Bdy height pulse rate E&M - 8867-4 90 /min Heart rate temperature E&M 98.1 [degF] Body temperature weight E&M - 3141-9 235 [lb_av] Weight Measured Diagnostic Results Date [...] negative Encounters Code Encounter Date Provider Facility CPT-63887 Level 4 New Patient 13:23:20 CDT Whit Trivedi MD [facility] Procedures Code Procedure Name Date Entry Date Standard Description CPT-15512 Sono retroperitoneal complete kidneys and bladder - XRAY USE ONLY 11:20:49 CDT CPT-06169 Abd single AP View - XRAY USE ONLY 08:58:02 CDT
--- OUTSIDE RECORDS SUMMARY | 2018-08-07 00:29 | XMS REPORT | Clinical Summary ---
Author Author Admin, Roro Organization [facility] Address Unknown Phone Unavailable Allergies, Adverse Reactions, Alerts Allergy Name Reaction Description Start Date Severity Status Provider Allergies Unknown Conditions or Problems Problem Name Problem Code Onset Date Status Entry Date Provider Comment Standard Description Annotate Problems Unknown Active Medication List Medication Instructions Start Date Stop Date Generic Name NDC Status Provider Patient Instruction Drug Treatment Unknown - unknown Procedures Code Procedure Name Date Entry Date Standard Description CPT-64404 Sono retroperitoneal complete kidneys and bladder - XRAY USE ONLY 11:20:49 CDT CPT-02307 Abd single AP View - XRAY USE ONLY 08:58:02 CDT
--- OUTSIDE RECORDS SUMMARY | 2018-08-07 00:30 | XMS REPORT | Referral Summary ---
Author Organization Unknown Address Unknown Phone Unavailable Care Team Providers Care Factory Lay Out Engineer Name Role Phone Jaun Vo PCP Encounter VC Date(s): 04/07/14 - 04/07/14 Via [facility] Dennis, Bill, [address] [place], [place] [address] Discharge Diagnosis: Acute bronchitis Discharge Disposition: Home or Self Care Attending Physician: Jaun Vo MD Admitting Physician: Jaun Vo MD Vital Signs Most recent to 1 oldest [Reference Range]: Temperature Tympanic 36.5 degC [36.6-38.1 degC] *LOW* (04/07/14 10:19 AM) Peripheral Pulse 72 bpm Rate [60-100 bpm] (04/07/14 10:19 AM) Respiratory Rate 18 br/min [14-20 br/min] (04/07/14 10:19 AM) Blood Pressure 140/76 mmHg [90-140/60-90 mmHg] (04/07/14 10:19 AM) Problem List Condition Effective Dates Status Health Status Informant Acute Active bronchitis(Confirmed ) Acute maxillary Active sinusitis(Confirmed) Bipolar disorder Active (disorder)(Confirmed ) Bladder outlet Active obstruction(Confirme d) Obesity(Confirmed) Active patient Spinal stenosis in Active cervical region (disorder)(Confirmed ) Diabetes type 2, Active controlled(Confirmed ) Allergies, Adverse Reactions, Alerts No Known Medication Allergies Medications allopurinol 300 mg oral tablet See Instructions, TAKE ONE TABLET BY MOUTH ONCE A DAY, # 90 tabs, 1 Refill(s), [facility] #[id number], TAKE ONE TABLET BY MOUTH ONCE A DAY Special Instructions: TAKE ONE TABLET BY MOUTH ONCE A DAY Start Date: 12/06/13 Status: Ordered amoxicillin-clavulanate 875 mg-125 mg oral tablet 1 tabs, Oral, q12hr, X 10 days, # 20 tabs, 0 Refill(s), Pharmacy: [facility] #[id number] Start Date: 04/02/14 Stop Date: 04/12/14 Status: Ordered GlipiZIDE XL 5 mg oral tablet, extended release See Instructions, TAKE ONE TABLET BY MOUTH TWICE A DAY, # 180 unknown unit, 1 Refill(s), eRx: [facility] #[id number], TAKE ONE TABLET BY MOUTH TWICE A DAY Special Instructions: TAKE ONE TABLET BY MOUTH TWICE A DAY Start Date: 12/06/13 Status: Ordered Glucometer strips (DME) DME Item test once daily dx 250.000 contour test strips prn refills, See Instructions, # 100 Each, 0 Refill(s), Pharmacy: [facility] #[id number], test once daily dx 250.000; contour test strips; prn refills, Supply Special Instructions: test once daily dx 250.000 contour test strips prn refills Start Date: 11/17/13 Status: Ordered hydrochlorothiazide 50 mg oral tablet See Instructions, TAKE ONE TABLET BY MOUTH ONCE A DAY, # 90 tabs, 1 Refill(s), eRx: [facility] #[id number], TAKE ONE TABLET BY MOUTH ONCE A DAY Special Instructions: TAKE ONE TABLET BY MOUTH ONCE A DAY Start Date: 12/06/13 Status: Ordered Janumet 50 mg-500 mg oral tablet See Instructions, TAKE ONE TABLET BY MOUTH TWICE A DAY, # 180 tabs, 1 Refill(s) , eRx: [facility] #[id number], TAKE ONE TABLET BY MOUTH TWICE A DAY Special Instructions: TAKE ONE TABLET BY MOUTH TWICE A DAY Start Date: 12/13/13 Status: Ordered Levaquin 500 mg oral tablet 1 tabs, Oral, q24hr, X 10 days, # 10 tabs, 0 Refill(s), Pharmacy: [facility] #[id number], 1 tabs Oral q24hr,x10 days Start Date: 04/07/14 Stop Date: 04/17/14 Status: Ordered SEROquel 200 mg oral tablet 2 tabs, Oral, Daily, # 180 tabs, 0 Refill(s) Start Date: 09/13/13 Status: Ordered Wellbutrin XL 300 mg/24 hours oral tablet, extended release 1 tabs, Oral, Daily, # 90 tabs, 0 Refill(s), other reason (Rx) Start Date: 09/13/13 Status: Ordered Results No data available for this section Immunizations Vaccine Date Refusal Reason influenza virus vaccine, live 02/08/13 Procedures No data available for this section Social History Social History Type Response Smoking Status Never smoker Assessment and Plan Extracted from: Title: Ambulatory Patient Education Author: Jaun Vo MD Date: Family Medicine Bronchitis Bronchitis is the body's way of reacting to injury and/or infection ( inflammation ) of the bronchi. Bronchi are the air tubes that extend from the windpipe into the lungs. If the inflammation becomes severe, it may cause shortness of breath. CAUSES Inflammation may be caused by: A virus. Germs (bacteria ). Dust. Allergens. Pollutants and many other irritants. The cells lining the bronchial tree are covered with tiny hairs (cilia ). These constantly beat upward, away from the lungs, toward the mouth. This keeps the lungs free of pollutants. When these cells become too irritated and are unable to do their job, mucus begins to develop. This causes the characteristic cough of bronchitis. The cough clears the lungs when the cilia are unable to do their job. Without either of these protective mechanisms, the mucus would settle in the lungs. Then you would develop pneumonia. Smoking is a common cause of bronchitis and can contribute to pneumonia. Stopping this habit is the single most important thing you can do to help yourself. TREATMENT Your caregiver may prescribe an antibiotic if the cough is caused by bacteria. Also, medicines that open up your airways make it easier to breathe. Your caregiver may also recommend or prescribe an expectorant. It will loosen the mucus to be coughed up. Only take [id number] or prescription medicines for pain, discomfort, or fever as directed by your caregiver. Removing whatever causes the problem (smoking, for example) is critical to preventing the problem from getting worse. Cough suppressants may be prescribed for relief of cough symptoms. Inhaled medicines may be prescribed to help with symptoms now and to help prevent problems from returning. For those with recurrent (chronic ) bronchitis, there may be a need for steroid medicines. SEEK IMMEDIATE MEDICAL CARE IF: During treatment, you develop more pus-like mucus (purulent sputum ). You have a fever. Your baby is older than 3 months with a rectal temperature of 102 F (38.9 C) or higher. Your baby is 3 months old or younger with a rectal temperature of 100.4 F ( 38 C) or higher. You become progressively more ill. You have increased difficulty breathing, wheezing, or shortness of breath. It is necessary to seek immediate medical care if you are elderly or sick from any other disease. MAKE SURE YOU: Understand these instructions. Will watch your condition. Will get help right away if you are not doing well or get worse. Document Released: 03/10/2006 Document Revised: 06/01/2012 Document Reviewed: [facility] Patient Information 2014 [employer] [facility]. No follow up information was provided. Extracted from: Title: Office Visit Note Author: Jaun Vo MD Date: 04/07/14 Assessment/Plan Acute bronchitis I recommended discontinuing Augmentin and beginning Levaquin 500 daily 10 days. He is using nnzp-ocz-[id number] Mucinex and may continue to do that. If not improving over the next 5-7 days or symptoms worsen he'll let me know. Ordered: Office Visit Level 3 Est 32023 Orders: levofloxacin, 1 tabs, Oral, q24hr, X 10 days, # 10 tabs, 0 Refill(s), Pharmacy: [facility] #[id number], 1 tabs Oral q24hr,x10 days
--- OUTSIDE RECORDS SUMMARY | 2018-08-07 00:30 | XMS REPORT | Continuity of Care Document ---
Author Organization Unknown Address Unknown Allergies Active Description Code Type Severity Reaction Onset Reported/Identified Relationship to Patient Clinical Status Yes No Known Allergies Drug Allergy 02/11/2012 Yes No Known Drug Allergies Drug Allergy 02/11/2012 Yes No Known Food Allergies Food Allergy 02/11/2012 Yes No Known Medication Allergies NKMA N/A N/A 12/01/2013 Medications There is no data. Problems There is no data. Procedures There is no data. Results Test Result Range PSA - 09/12/17 11:06 PSA, TOTAL 0.9 ng/mL < OR=4.0 TSH - 09/12/17 11:06 TSH 0.90 mIU/L 0.40-4.50 Encounters ACCT No. Visit Date/Time Discharge Status Pt. Type Provider Facility Loc./Unit Complaint [id number] 04/14/2014 11:16:00 04/14/2014 23:59:00 DIS Outpatient Jaun Vo Via [facility] [place] SINUS PROBLEM [id number] 04/07/2014 10:14:00 04/07/2014 23:59:00 DIS Outpatient Jaun Vo Via [facility] New FM sinus infection [id number] 04/02/2014 10:56:00 04/02/2014 23:59:00 DIS Outpatient Judson Downs Via [facility] New IC POSS SINUS INFEC [id number] 03/03/2014 15:00:00 03/03/2014 23:59:00 DIS Outpatient Jaun Vo Via [facility] Sleep [place] med with headgear [id number] 07/20/2014 08:20:00 Document Registration [id number] 05/18/2014 08:31:00 Document Registration [id number] 03/03/2014 12:08:00 Document Registration [id number] 10/09/2014 15:02:00 10/10/2014 03:30:00 DIS Outpatient ROSITA JEFFRIES [id number] 10/07/2014 13:57:00 10/07/2014 13:59:31 DIS Outpatient ROSITA JEFFRIES [id number] 09/19/2016 08:51:01 ACT Unknown [id number] 02/12/2012 05:19:00 02/12/2012 23:59:59 CLS Outpatient Arturo CRUZ, [facility] on [address] [id number] 07/26/2018 07:00:00 07/26/2018 23:59:59 CLS Outpatient JORDI RIGGS [facility] [id number] 09/12/2017 09:40:00 Document Registration
--- OUTSIDE RECORDS SUMMARY | 2018-08-07 00:30 | XMS REPORT | Summary of Care ---
Author Author Liliana Watts APRN Organization Unknown Address [address] [place], [place] [address] Phone Unavailable Care Team Providers Care Station Cleaning Porter Name Role Phone Liliana Watts APRN Unavailable [...] * Quantity: 10 Refills: 0 Liliana Watts ORTHOPAEDIC SURGEON* Started ActiveAmoxicillin-Pot Clavulanate 875-125 MG Oral Tablet TAKE 1 TABLET EVERY 12 HOURS UNTIL GONE. * Quantity: 14 Refills: 0 Liliana Watts ORTHOPAEDIC SURGEON* Started ActivePredniSONE 20 MG Oral Tablet Take one tablet daily for 3 days, 1/2 tablet daily for 3 days then stop * Quantity: 6 Refills: 0 Liliana Watts ORTHOPAEDIC SURGEON* Started Active Allergies and Adverse Reactions Name Dates Details No Known Allergies Status: Active Procedures Procedure Dates Details History of Lithotripsy - Whole Body (Extracorporeal Shock Wave) History of Cystoscopy With Ureteroscopy With Removal Of Calculus History of Cystoscopy With Insertion Of Ureteral Stent Left Completed: History of Cystourethroscopy W/ Ureteroscopy W/ Tx Of Ureteral Strict Completed:28-Apr-2009 STREPTOCOCCUS SCREEN WITH CULTURE 5040 Ordered: Immunization Name Dates Details Diphtheria-Tetanus Toxoids 6.7-5 LFU/0.5ML Intramuscular Injectable Administered on:Oct-2013 Family History Unknown Family Member* Name Dates Details Family history of Nephrolithiasis Comments: Family History Status: Active Social History Name Dates Details Smoking Status* Never smoker Vital Signs Date Test Result Details 13:03 BP Systolic 130 mm[Hg] Status: BP Diastolic 80 mm[Hg] Status: Heart Rate 84 /min Status: Temperature 98.4 f Status: Weight 253.125 lb Status: O2 SAT 97 % Status: 13:21 BP Systolic 138 mm[Hg] Status: BP [...]
--- OUTSIDE RECORDS SUMMARY | 2018-08-07 00:30 | XMS REPORT | Referral Summary ---
Author Organization Unknown Address Unknown Phone Unavailable Care Team Providers Care Cell Preparer Name Role Phone Jaun Vo PCP Encounter VC Date(s): 04/14/14 - 04/14/14 Via [facility] CARL[facility] Dennis, Bill, [address] [place], [place] [address] Discharge Diagnosis: Acute maxillary sinusitis Discharge Disposition: Home or Self Care Attending Physician: Jaun Vo MD Admitting Physician: Jaun Vo MD Vital Signs Most recent to 1 oldest [Reference Range]: Temperature Tympanic 36.6 degC [36.6-38.1 degC] (04/14/14 11:24 AM) Peripheral Pulse 80 bpm Rate [60-100 bpm] (04/14/14 11:24 AM) Respiratory Rate 14 br/min [14-20 br/min] (04/14/14 11:24 AM) Blood Pressure 134/80 mmHg [90-140/60-90 mmHg] (04/14/14 11:24 AM) Problem List Condition Effective Dates Status [...] DAY, # 90 tabs, 1 Refill(s), eRx: [facility] #[id number], TAKE ONE TABLET BY MOUTH ONCE A DAY Special Instructions: TAKE ONE TABLET BY MOUTH ONCE A DAY Start Date: 12/06/13 Status: Ordered GlipiZIDE XL 5 mg oral tablet, extended release See Instructions, TAKE ONE TABLET BY MOUTH TWICE A DAY, # 180 unknown unit, 1 Refill(s), eRx: [facility] #[id number], TAKE ONE TABLET BY MOUTH TWICE A DAY Special Instructions: TAKE ONE TABLET BY MOUTH TWICE A DAY Start Date: 12/06/13 Status: Ordered Glucometer strips (DME) DME Item test once daily dx 250.000 contour test strips prn refills, See Instructions, # 100 Each, 0 Refill(s), Pharmacy: [facility] #[id number], test once daily dx 250.000; contour test strips; prn refills, Supply Special Instructions: test once daily dx 250.000 contour test strips prn refills Start Date: 11/17/13 Status: Ordered hydrochlorothiazide 50 mg oral tablet See Instructions, TAKE ONE TABLET BY MOUTH ONCE A DAY, # 90 tabs, 1 Refill(s), eRx: [facility] #[id number], TAKE ONE TABLET BY MOUTH ONCE A DAY Special Instructions: TAKE ONE TABLET BY MOUTH ONCE A DAY Start Date: 12/06/13 Status: Ordered Janumet 50 mg-500 mg oral tablet See Instructions, TAKE ONE TABLET BY MOUTH TWICE A DAY, # 180 tabs, 1 Refill(s) , eRx: [facility] #[id number], TAKE ONE TABLET BY MOUTH TWICE A DAY Special Instructions: TAKE ONE TABLET BY MOUTH TWICE A DAY Start Date: 12/13/13 Status: Ordered Levaquin 500 mg oral tablet 1 tabs, Oral, q24hr, X 10 days, # 10 tabs, 0 Refill(s), Pharmacy: [facility] #[id number], 1 tabs Oral q24hr,x10 days Start Date: [...] Patient Education Author: Jaun Vo MD Date: Allergy Sinusitis Sinusitis is redness, soreness, and swelling (inflammation ) of the paranasal sinuses. Paranasal sinuses are air pockets within the bones of your face ( beneath the eyes, the middle of the forehead, or above the eyes). In healthy paranasal sinuses, mucus is able to drain out, and air is able to circulate through them by way of your nose. However, when your paranasal sinuses are inflamed, mucus and air can become trapped. This can allow bacteria and other germs to grow and cause infection. Sinusitis can develop quickly and last only a short time (acute ) or continue over a long period (chronic ). Sinusitis that lasts for more than 12 weeks is considered chronic. CAUSES Causes of sinusitis include: Allergies. Structural abnormalities, such as displacement of the cartilage that separates your nostrils (deviated septum ), which can decrease the air flow through your nose and sinuses and affect sinus drainage. Functional abnormalities, such as when the small hairs (cilia ) that line your sinuses and help remove mucus do not work properly or are not present. SYMPTOMS Symptoms of acute and chronic sinusitis are the same. The primary symptoms are pain and pressure around the affected sinuses. Other symptoms include: Upper toothache. Earache. Headache. Bad breath. Decreased sense of smell and taste. A cough, which worsens when you are lying flat. Fatigue. Fever. Thick drainage from your nose, which often is green and may contain pus ( purulent ). Swelling and warmth over the affected sinuses. DIAGNOSIS Your caregiver will perform a physical exam. During the exam, your caregiver may : Look in your nose for signs of abnormal growths in your nostrils (nasal polyps) . Tap over the affected sinus to check for signs of infection. View the inside of your sinuses (endoscopy ) with a special imaging device with a light attached (endoscope ), which is inserted into your sinuses. If your caregiver suspects that you have chronic sinusitis, one or more of the following tests may be recommended: Allergy tests. Nasal culture A sample of mucus is taken from your nose and sent to a lab and screened for bacteria. Nasal cytology A sample of mucus is taken from your nose and examined by your caregiver to determine if your sinusitis is related to an allergy. TREATMENT Most cases of acute sinusitis are related to a viral infection and will resolve on their own within 10 days. Sometimes medicines are prescribed to help relieve symptoms (pain medicine, decongestants, nasal steroid sprays, or saline sprays) . However, for sinusitis related to a bacterial infection, your caregiver will prescribe antibiotic medicines. These are medicines that will help kill the bacteria causing the infection. Rarely, sinusitis is caused by a fungal infection. In theses cases, your caregiver will prescribe antifungal medicine. For some cases of chronic sinusitis, surgery is needed. Generally, these are cases in which sinusitis recurs more than 3 times per year, despite other treatments. HOME CARE INSTRUCTIONS Drink plenty of water. Water helps thin the mucus so your sinuses can drain more easily. Use a humidifier. Inhale steam 3 to 4 times a day (for example, sit in the bathroom with the shower running). Apply a warm, moist washcloth to your face 3 to 4 times a day, or as directed by your caregiver. Use saline nasal sprays to help moisten and clean your sinuses. Take [id number] or prescription medicines for pain, discomfort, or fever only as directed by your caregiver. SEEK IMMEDIATE MEDICAL CARE IF: You have increasing pain or severe headaches. You have nausea, vomiting, or drowsiness. You have swelling around your face. You have vision problems. You have a stiff neck. You have difficulty breathing. MAKE SURE YOU: Understand these instructions. Will watch your condition. Will get help right away if you are not doing well or get worse. Document Released: 03/10/2006 Document Revised: 06/01/2012 Document Reviewed: [facility] Patient Information 2014 [employer]. No follow up information was provided. Extracted from: Title: Office Visit Note Author: Jaun Vo MD Date: 04/14/14 Assessment/Plan Acute maxillary sinusitis I recommended a CT of his sinuses with persistent nature of his symptoms despite appropriate and potent antibiotic treatment. We 'll see what that shows and make further recommendations from there. Ordered: Office Visit Level 3 Est 31344 Orders: CT Limited or Localized F/U Study
--- OUTSIDE RECORDS SUMMARY | 2018-08-07 00:30 | XMS REPORT | Summary of Care ---
Author Author Liliana Watts APRN Organization Unknown Address [address] [place], [place] [id number] Phone Unavailable Care Team Providers Care Director Of Religious Activities Name Role Phone Liliana Watts APRN Unavailable [...] 10 Refills: 0 Liliana Watts APRN* Started ActiveAmoxicillin-Pot Clavulanate 875-125 MG Oral Tablet TAKE 1 TABLET EVERY 12 HOURS UNTIL GONE. * Quantity: 14 Refills: 0 Liliana Watts APRN* Started ActivePredniSONE 20 MG Oral Tablet Take one tablet daily for 3 days, 1/2 tablet daily for 3 days then stop * Quantity: 6 Refills: 0 Liliana Watts APRN* Started Active Allergies and Adverse Reactions Name Dates Details No Known Allergies Status: Active Procedures Procedure Dates Details History of Lithotripsy - Whole Body (Extracorporeal Shock Wave) History of Cystoscopy With Ureteroscopy With Removal Of Calculus History of Cystoscopy With Insertion Of Ureteral Stent Left Completed: History of Cystourethroscopy W/ Ureteroscopy W/ Tx Of Ureteral Strict Completed:28-Apr-2009 MONONUCLEOSIS ANTIBODY 2009 Ordered: Immunization Name Dates Details Diphtheria-Tetanus Toxoids [...] Diabetic Eye Exam No diabetic retinopathy (Better) 13:35 STREPTOCOCCUS SCREEN WITH CULTURE 5040 Comments: * Culture in progress*Testing performed by [facility], [address] [place] [id number] *STREPTOCOCCUS SCREEN NEGATIVE for Streptococcus pyogenes (Better) Range : NEGATIVE for Streptococcus pyogenes Plan of Care Planned Observations* Name Dates [...]
--- NOTE | 2018-08-07 00:39 | ED Cough/URI ---
General Chief Complaint: Cough/Cold/Flu Symptoms Stated Complaint: CHEST PAIN WITH PRESSURE,COUGH Sepsis Screen: No Definite Risk Source: patient History of Present Illness Date Seen by Provider: August 07, 2018 Time Seen by Provider: 00:39 Initial Comments 62 yo M presenting with cough for over 2 weeks. tonight he was having trouble laying flat due to shortness of breath with cough and having a burning sensation in chest with the cough. He has been on Augmentin and taking nasal steroids and medicine for sinuses from Dr. Stanley. Initially it seemed to help his congestion and drainage in the last few days he has had more of a burning sensation with this cough. Tonight he was unable to lay flat without having shortness of breath and pain with breathing. He was not able to sleep due to this worsening of his symptoms. He did have a steroid prescribed as well but because he knew it would raise his sugars he did not take it. He states the drainage now is more just clear in nature. He has been having continued cough that is making his chest wall hurt in addition to the burning sensation in chest with cough and laying back. He has no swelling in his legs. He has no n/v. Allergies and Home Medications Allergies Coded Allergies: No Known Drug Allergies (Unverified , 08/07/18) Home Medications Albuterol Sulfate 1 Puff Puff, 2 PUFF IH Q4H PRN for COUGH 1 PUFF = 90 MCG Prescribed by: JOSH VASQUEZ on 08/07/18 0209 Patient Home Medication List Home Medication List Reviewed: Yes Review of Systems Review of Systems Constitutional: chills; No fever; malaise EENTM: hoarseness, nose congestion, throat pain, other (sinus pressure); No epistaxis, No nose pain Respiratory: see HPI, cough, other (burning with cough) Cardiovascular: chest pain (burning chest pain with cough) Gastrointestinal: no symptoms reported Genitourinary: no symptoms reported Musculoskeletal: other (chest wall pain from cough) Skin: no symptoms reported Psychiatric/Neurological: No Symptoms Reported Past Fdorgzp-Kwljec-Nmgbse Hx Past Med/Social Hx: Reviewed Nursing Past Med/Soc Hx Patient Social History Recent Foreign Travel: No Contact w/Someone Who Travel: No Recent Infectious Disease Expo: No Physical Exam Vital Signs - First Documented 08/07/18 02:11 Pulse Ox 99 Capillary Refill : Less Than 3 Seconds Height: 5'9.00" Weight: 217lbs. oz. [id number]; BMI Method:Stated General Appearance: WD/WN, mild distress HEENT: PERRL/EOMI, pharynx normal, other (tenderness over sinuses) Neck: supple, normal inspection Respiratory: no respiratory distress, no accessory muscle use; No rales, No rhonchi, No stridor; wheezing (mild end expiratory wheezes), other (tender to anterior chest wall with palpation) Cardiovascular: normal peripheral pulses, regular rate, rhythm Gastrointestinal: normal bowel sounds, non tender, soft Extremities: normal range of motion, non-tender, normal inspection, no pedal edema, no calf tenderness Neurologic/Psychiatric: alert, oriented x 3 Skin: normal color, warm/dry Progress/Results/Core Measures Suspected Sepsis Recent Fever Within 48 Hours: No Infection Criteria Present: None New/Unexplained Altered Menta: No Sepsis Screen: No Definite Risk SIRS Temperature:97.5 Pulse: 63 Respiratory Rate: 16 Blood Pressure 121 /69 Mean: 86 Results/Orders My Orders Orders - JOSH VASQUEZ MD Chest Pa/Lat (2 View) (08/07/18 01:20) Albuterol/Ipra Inhalation Soln (Duoneb I (08/07/18 01:45) Svn Small Volume Nebulizer (08/07/18 01:43) Medications Given in ED Current Medications Medications Dose Ordered Sig/Zaira Route Start Time Stop Time Status Last Admin Dose Admin Albuterol/ Ipratropium 3 ml ONCE ONCE INH 08/07/18 01:45 08/07/18 01:47 DC 08/07/18 01:46 3 ML Vital Signs/I&O 08/07/18 08/07/18 08/07/18 00:27 00:27 02:11 Temp 97.5 97.5 Pulse 63 63 Resp 16 16 B/P (MAP) 121/69 (86) 121/69 (86) Pulse Ox 99 O2 Delivery Room Air Room Air Room Air Capillary Refill : Less Than 3 Seconds Blood Pressure Mean: 86 Progress Note #1: Progress Note reassured pt that his lungs did not sound bad and his exam was benign. Will check a cxr to look for other pathology. Progress Note #2: Progress Note CXR no acute infiltrate on my review of his 2 view film. He has increased perihilar lung markings. Given a duoneb breathing treatment to help with his cough and burning sensation in his lungs. He reported that it did help with his symptoms. discharged on albuterol inhaler and advised to try taking the prednisone prescribed by Dr. Stanley previously Diagnostic Imaging Diagonstic Imaging: Xray Plain Films/CT/US/NM/MRI: chest Comments on my review of his 2 view CXR he has no definite infiltrate or effusion. He has increased perihilar lung markings consistent with inflamed airways. Reviewed: Reviewed by Me Departure Impression Primary Impression: Burning chest pain Additional Impressions: Cough in adult patient Sinus drainage Inflammation of trachea and bronchus Disposition: HOME, SELF-CARE Condition: Stable Departure-Patient Inst. Decision time for Depature: 02:03 Referrals: ORTEGA STANLEY MD (PCP) Primary Care Physician Patient Instructions: Chest Pain That Is Not Caused by the Heart (DC), Bacterial Upper Respiratory Infection, Adult (DC), Cough, Adult (DC) Add. Discharge Instructions: Take the steroids to help with inflammation and burning in chest and airways. Continue on your medicine as prescribed by Dr. Stanley. All discharge instructions reviewed with patient and/or family. Voiced understanding. Scripts Albuterol Sulfate (PROAIR HFA) 1 Puff Puff 2 PUFF IH Q4H PRN for COUGH for 30 Days, #1 INHALER 0 Refills 1 PUFF = 90 MCG Prov: JOSH VASQUEZ MD 08/07/18 JOSH VASQUEZ MD August 07, 2018 00:39
--- NOTE | 2018-08-07 01:07 | NUR ---
DOCTOR PEDRO IN TO SEE THE PATIENT.
[2018-08-07] MEDS ORDERED: RT-ALBUTEROL/IPRATROPIUM 3 ML (DUONEB) VIAL INH ONE (01:45)
[2018-08-07] MEDS ORDERED: RT-ALBUINH IH (02:09)
[2018-08-07 02:11] VITALS: BP 121/69
--- NOTE | 2018-08-07 07:05 | Diagnostic Imaging Report ---
Indication: Lower respiratory infection PA and lateral chest Heart size and pulmonary vascularity are normal. Lungs are clear. There are no effusions or pneumothoraces. Impression: Negative chest. Dictated by: Dictated on workstation # [id number]
== END 2018-08-07 02:14 | disposition home or self-care (01) ==
LOC: ER FS 00:24
DX: R07.89 Other chest pain (principal); J04.10 Acute tracheitis without obstruction; J34.89 Other specified disorders of nose and nasal sinuses
CPT/HCPCS: 71046; 94640

== ENCOUNTER → 2019-12-20 | Outpatient (CLI) | payer BC ==
[~2019-12-20] MED LIST: RT-ALBUINH IH
== END ==
LOC: CARD 15:00
PROVIDERS: ATTEND Internal Medicine Cardiovascular Disease
DX: E78.2 Mixed hyperlipidemia (principal); E11.9 Type 2 diabetes mellitus without complications; I35.1 Nonrheumatic aortic (valve) insufficiency; R55 Syncope and collapse

== ENCOUNTER 2020-01-28 08:25 | Emergency (ER) | payer BC ==
[~2020-01-28] VITALS: Ht 175.3 cm; Wt 82.2 kg
[2020-01-28] MEDS ORDERED: NS IV 1000 ML 1,000 ML IV STA (08:36)
--- NOTE | 2020-01-28 08:38 | ED General ---
General Stated Complaint: ABN LAB RESULTS Source of Information: Patient, RN/MD, RN Notes Reviewed History of Present Illness Date Seen by Provider: Jan 28, 2020 Time Seen by Provider: 08:30 Initial Comments This patient is a 64-year-old male presents to the emergency department via his doctor's office due to complaint of a low sodium level. They state the sodium was round 123. Patient comes in for medical evaluation. Patient otherwise has no complaints. Patient states he is a diabetic and takes medications for diabetes but other than that is pretty healthy. Patient denies any complaints today. We'll do medical evaluation treatment is needed Severity: Mild Associated Systoms: Denies Symptoms Allergies and Home Medications Allergies Coded Allergies: No Known Drug Allergies (Unverified , 08/07/18) Home Medications Albuterol Sulfate 1 Puff Puff, 2 PUFF IH Q4H PRN for COUGH 1 PUFF = 90 MCG Prescribed by: JOSH VASQUEZ on 08/07/18 0209 Patient Home Medication List Home Medication List Reviewed: Yes Review of Systems Review of Systems Constitutional: No no symptoms reported; see HPI; No chills, No diaphoresis, No dizziness, No fever, No malaise, No weakness, No weight gain, No weight loss, No other EENTM: No see HPI, No no symptoms reported, No ear discharge, No hearing loss, No ear pain, No blurred vision, No double vision, No eye pain, No tearing, No vision loss, No dental problems, No hoarseness, No mouth pain, No mouth swelling, No epistaxis, No nose congestion, No nose pain, No throat pain, No throat swelling, No other Respiratory: No no symptoms reported, No see HPI, No cough, No dyspnea on exertion, No hemoptysis, No orthopnea, No phlegm, No short of breath, No stridor, No wheezing, No other Cardiovascular: No no symptoms reported, No see HPI, No chest pain, No edema, No Hx of Intervention, No palpitations, No syncope, No vascular heart diseas, No other Gastrointestinal: No RUQ, No LUQ, No RLQ, No LLQ, No no symptoms reported, No see HPI, No abdominal pain, No constipation, No diarrhea, No dysphagia, No hematemesis, No heartburn, No jaundice, No loss of appetite, No melena, No n ausea, No vomiting, No other Genitourinary: No no symptoms reported, No see HPI, No decreased output, No d ischarge, No dysuria, No frequency, No hematuria, No hesitancy, No incontinence, No nocturia, No pain, No other Musculoskeletal: No no symptoms reported, No see HPI, No back pain, No gout, No joint pain, No joint swelling, No muscle pain, No muscle stiffness, No muscle cramps, No muscle twitching, No muscle weakness, No neck pain, No other Skin: No no symptoms reported, No see HPI, No change in color, No change in hair/nails, No dryness, No hx of skin cancer, No lesions, No lumps, No pruritus, No rash, No other Psychiatric/Neurological: Denies No Symptoms Reported, Denies See HPI, Denies Anxiety, Denies Depressed, Denies Emotional Problems, Denies Headache, Denies Numbness, Denies Paresthesia, Denies Pre-Existing Deficit, Denies Seizure, Denies Tingling, Denies Tremors, Denies Weakness, Denies Other Hematologic/Lymphatic: Denies No Symptoms Reported, Denies See HPI, Denies Anemia, Denies Blood Clots, Denies Easy Bleeding, Denies Easy Bruising, Denies Swollen Glands, Denies Other All Other Systems Reviewed Negative Unless Noted: Yes Past Zvqepad-Hzawcu-Wpmypo Hx Patient Social History Recent Foreign Travel: No Contact w/Someone Who Travel: No Physical Exam Vital Signs Vital Signs - First Documented 01/28/20 08:46 Temp 36.0 Pulse 64 Resp 16 B/P (MAP) 139/68 (91) Pulse Ox 100 O2 Delivery Room Air Capillary Refill : Height, Weight, BMI Height: 5'9.00" Weight: 217lbs. oz. 98.491449tp; BMI Method:Stated General Appearance: No Apparent Distress, WD/WN Respiratory: Chest Non Tender, Lungs Clear, Normal Breath Sounds, No Accessory Muscle Use, No Respiratory Distress Cardiovascular: Regular Rate, Rhythm, No Edema, No Gallop, No JVD, No Murmur, Normal Peripheral Pulses Gastrointestinal: Normal Bowel Sounds, No Organomegaly, No Pulsatile Mass, Non Tender, Soft Neurologic/Psychiatric: Alert, Oriented x3, No Motor/Sensory Deficits, Normal Mood/Affect Skin: Normal Color, Warm/Dry Progress/Results/Core Measures Suspected Sepsis SIRS Temperature: Pulse: Respiratory Rate: Laboratory Tests 01/28/20 08:40: White Blood Count 7.3 Blood Pressure / Mean: Laboratory Tests 01/28/20 08:40: Creatinine 0.75, Platelet Count 244, Total Bilirubin 0.6 Results/Orders Lab Results Laboratory Tests Test 01/28/20 08:40 01/28/20 08:50 Range/Units White Blood Count 7.3 4.3-11.0 10^3/uL Red Blood Count 4.45 4.35-5.85 10^6/uL Hemoglobin 14.5 13.3-17.7 G/DL Hematocrit 41 40-54 % Mean Corpuscular Volume 92 80-99 FL Mean Corpuscular Hemoglobin 33 25-34 PG Mean Corpuscular Hemoglobin Concent 36 32-36 G/DL Red Cell Distribution Width 12.3 10.0-14.5 % Platelet Count 244 130-400 10^3/uL Mean Platelet Volume 9.4 7.4-10.4 FL Immature Granulocyte % (Auto) 1 % Neutrophils (%) (Auto) 75 42-75 % Lymphocytes (%) (Auto) 12 12-44 % Monocytes (%) (Auto) 10 0-12 % Eosinophils (%) (Auto) 3 0-10 % Basophils (%) (Auto) 0 0-10 % Neutrophils # (Auto) 5.5 1.8-7.8 X 10^3 Lymphocytes # (Auto) 0.9 L 1.0-4.0 X 10^3 Monocytes # (Auto) 0.7 0.0-1.0 X 10^3 Eosinophils # (Auto) 0.2 0.0-0.3 10^3/uL Basophils # (Auto) 0.0 0.0-0.1 10^3/uL Immature Granulocyte # (Auto) 0.0 0.0-0.1 10^3/uL Sodium Level 130 L 135-145 MMOL/L Potassium Level 4.3 3.6-5.0 MMOL/L Chloride Level 93 L 98-107 MMOL/L Carbon Dioxide Level 25 21-32 MMOL/L Anion Gap 12 5-14 MMOL/L Blood Urea Nitrogen 14 7-18 MG/DL Creatinine 0.75 0.60-1.30 MG/DL Estimat Glomerular Filtration Rate > 60 BUN/Creatinine Ratio 19 Glucose Level 123 H 70-105 MG/DL Calcium Level 9.7 8.5-10.1 MG/DL Corrected Calcium 9.4 8.5-10.1 MG/DL Total Bilirubin 0.6 0.1-1.0 MG/DL Aspartate Amino Transf (AST/SGOT) 19 5-34 U/L Alanine Aminotransferase (ALT/SGPT) 15 0-55 U/L Alkaline Phosphatase 96 40-136 U/L Total Protein 6.7 6.4-8.2 GM/DL Albumin 4.4 3.2-4.5 GM/DL Urine Color YELLOW Urine Clarity CLEAR Urine pH 6.0 5-9 Urine Specific [place] 1.015 L 1.016-1.022 Urine Protein NEGATIVE NEGATIVE Urine Glucose (UA) NEGATIVE NEGATIVE Urine Ketones NEGATIVE NEGATIVE Urine Nitrite NEGATIVE NEGATIVE Urine Bilirubin NEGATIVE NEGATIVE Urine Urobilinogen 0.2 < = 1.0 MG/DL Urine Leukocyte Esterase NEGATIVE NEGATIVE Urine RBC (Auto) NEGATIVE NEGATIVE Urine RBC NONE /HPF Urine WBC NONE /HPF Urine Squamous Epithelial Cells RARE /HPF Urine Crystals NONE /LPF Urine Bacteria NONE /HPF Urine Casts NONE /LPF Urine Mucus NEGATIVE /LPF Urine Culture Indicated NO My Orders Orders - ANNA LOU MD Comprehensive Metabolic Panel (01/28/20 08:36) Cbc With Automated Diff (01/28/20 08:36) Urinalysis (01/28/20 08:36) Ed Iv/Invasive Line Start (01/28/20 08:36) Ns Iv 1000 Ml (Sodium Chloride 0.9%) (01/28/20 08:36) Vital Signs/I&O 01/28/20 08:46 Temp 36.0 Pulse 64 Resp 16 B/P (MAP) 139/68 (91) Pulse Ox 100 O2 Delivery Room Air Capillary Refill : Progress Note : Time: 09:25 Progress Note Sodium level 130. Patient be given instructions about hyponatremia. Patient continue all home medications and follow up with PCP. Patient discharged home Departure Impression Primary Impression: Hyponatremia Disposition: 01 HOME, SELF-CARE Condition: Stable Departure-Patient Inst. Decision time for Depature: 09:26 Referrals: [facility] (PCP) Primary Care Physician BEV PHAN APRN (Family) Primary Care Physician Patient Instructions: Hyponatremia (DC) Add. Discharge Instructions: Follow-up with your PCP in 2-3 days. ANNA LOU MD Jan 28, 2020 08:38
[2020-01-28 09:01] LABS: WHITE BLOOD COUNT 7.3 10^3/uL (4.3-11.0)
[2020-01-28 09:02] LABS: BASOPHILS % (AUTO) 0 % (0-10); EOSINOPHILS # (AUTO) 0.2 10^3/uL (0.0-0.3); EOSINOPHILS % (AUTO) 3 % (0-10); HEMATOCRIT 41 % (40-54); HEMOGLOBIN 14.5 G/DL (13.3-17.7); LYMPHOCYTES # (AUTO) 0.9 X 10^3 (1.0-4.0); LYMPHOCYTES % (AUTO) 12 % (12-44); MEAN CORPUSCULAR HEMOGLOBIN 33 PG (25-34); MEAN CORPUSCULAR HGB CONC 36 G/DL (32-36); MEAN CORPUSCULAR VOLUME 92 FL (80-99); MEAN PLATELET VOLUME 9.4 FL (7.4-10.4); MONOCYTES # (AUTO) 0.7 X 10^3 (0.0-1.0); MONOCYTES % (AUTO) 10 % (0-12); NEUTROPHILS # (AUTO) 5.5 X 10^3 (1.8-7.8); NEUTROPHILS % (AUTO) 75 % (42-75); PLATELET COUNT 244 10^3/uL (130-400)
[2020-01-28 09:07] LABS: BILIRUBIN,URINE NEGATIVE (NEGATIVE); CLARITY,URINE CLEAR; COLOR,URINE YELLOW; GLUCOSE, URINE (UA) NEGATIVE (NEGATIVE); KETONES,URINE NEGATIVE (NEGATIVE); LEUKOCYTE ESTERASE ,URINE NEGATIVE (NEGATIVE); NITRITE,URINE NEGATIVE (NEGATIVE); PROTEIN,URINE NEGATIVE (NEGATIVE); SQUAMOUS EPITHELIAL CELL,UR RARE /HPF
[2020-01-28 09:20] LABS: ALANINE AMINOTRANSFERASE 15 U/L (0-55); ALKALINE PHOSPHATASE 96 U/L (40-136); BILIRUBIN,TOTAL 0.6 MG/DL (0.1-1.0); BUN/CREATININE RATIO 19; CALCIUM 9.7 MG/DL (8.5-10.1); CARBON DIOXIDE 25 MMOL/L (21-32); CHLORIDE 93 MMOL/L (98-107); CREATININE SERUM 0.75 MG/DL (0.60-1.30); GFR ESTIMATED > 60; GLUCOSE 123 MG/DL (70-105); POTASSIUM 4.3 MMOL/L (3.6-5.0); SODIUM 130 MMOL/L (135-145)
[2020-01-28 09:21] LABS: ALBUMIN 4.4 GM/DL (3.2-4.5); TOTAL PROTEIN 6.7 GM/DL (6.4-8.2)
[2020-01-28 09:49] VITALS: BP 133/71
== END 2020-01-28 09:49 | disposition home or self-care (01) ==
LOC: EDUNIT# 08:25 → ER FS 08:27
DX: E87.1 Hypo-osmolality and hyponatremia (principal)
CPT/HCPCS: 36415; 80053; 81000; 85025

== ENCOUNTER → 2020-02-08 | Outpatient (CLI) | payer BC ==
[~2020-02-08] MED LIST changes: +CATHETER FLUSH 10 ML SYR IV PRN; +HOLD METFORMIN - RECEIVED CONTRAST 20 ML VIAL IV SCH; +IOHEXOL 350 MG/ML 100 ML (OMNIPAQUE 350) VIAL IV ONE; +NS 100 ML (IVPB) BAG IV ONE
--- NOTE | 2020-02-08 10:56 | Diagnostic Imaging Report ---
PROCEDURE: CT head with and without contrast. TECHNIQUE: Multiple contiguous axial images were obtained through the brain before and after the administration of intravenous contrast. Sagittal coronal reconstructed images were also obtained. Auto Exposure Controls were utilized during the CT exam to meet ALARA standards for radiation dose reduction. INDICATION: Memory loss, prior acoustic neuroma surgery. There are no prior CT head examinations available for comparison. The MRI brain exam of 11/01/2011 noted postoperative changes involving the right occipital and right posterior fossa but failed to show any sign of tumor recurrence. On the pre-intravenous contrast series of this exam there are again postsurgical changes evident involving the right occipital and parietal bones. There is also a small metallic screw within the right parietal bone just superior to the craniotomy. The artifact related to the metallic screw does limit the sensitivity of this exam. However, there is no abnormal enhancement in this area to suggest tumor recurrence. There is no other abnormal enhancement within the brain identified either. [place] where visualized is unremarkable for aneurysm formation. The ventricles are somewhat prominent compared to the prior MRI exam but not abnormally dilated. The bone windows show no evidence for a fracture or for a destructive lesion. The orbits and sinuses were not visualized in their entirety. Where visualized there is no acute abnormality. IMPRESSION: 1. 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 There is no abnormal enhancement in this area to suggest tumor recurrence. 2. There is no evidence for an acute intracranial abnormality. Dictated by: Dictated on workstation # [id number]
== END ==
LOC: RAD FS 09:35
PROVIDERS: ATTEND Nurse Practitioner Family
DX: R41.3 Other amnesia (principal); R41.89 Other symptoms and signs involving cognitive functions and awareness; Z98.890 Other specified postprocedural states
CPT/HCPCS: 70470